=== PATIENT | female | born 1970 | race Caucasian/White ===

== ENCOUNTER 2016-10-02 14:49 | Emergency (ER) | payer SELFPAY ==
[~2016-10-02] VITALS: Ht 182.9 cm; Wt 136.4 kg
[~2016-10-02 14:49] MED LIST: BENADRYL25 M1 PO; NO HOME MEDICATIONS
[2016-10-02 14:50] VITALS: TEMP 99.2
[2016-10-02 15:14] LABS: BASO % 0.4 % (0.0-2.0); EOS # 0.1 (0.0-0.7); EOS % 0.8 % (0-4.0); GRAN # 5.5 (1.4-6.5); GRAN % 70.7 % (42.2-75.2); LYMPH # 1.6 (1.2-3.4); LYMPH % 20.7 % (20.0-51.0); MEAN CELL VOLUME 72 fl (80.0-100.0); MEAN CORPUSCULAR HGB CONC 31 g/dl (33.0-37.0); MEAN PLATELET VOLUME 11.7 fl (7.4-10.4); MONO # 0.5 (0.1-0.6); MONO % 6.9 % (1.7-9.3); PLATELET COUNT 226 K/mm3 (130-400); RED BLOOD COUNT 5.02 M/mm3 (4.10-5.30); REDCELL DISTRIBUTION WIDTH-CV 17.1 % (11.5-14.5); WHITE BLOOD COUNT 7.8 K/mm3 (4.8-10.8)
[2016-10-02 15:22] LABS: HEMATOCRIT 35.9 % (37.0-47.0); HEMOGLOBIN 11.1 g/dl (12.5-16.0); MEAN CORPUSCULAR HEMOGLOBIN 22 pg (27.0-31.0)
[2016-10-02 15:24] LABS: ADJUSTED CALCIUM 8.7 mg/dL (8.4-10.2); ALBUMIN 4.2 gm/dL (3.5-5.0); BILIRUBIN,TOTAL 0.7 mg/dL (0.0-1.0); CALCIUM 8.9 mg/dL (8.4-10.2); CREATININE, serum 0.98 mg/dL (0.52-1.25); POTASSIUM 4.2 mmol/L (3.4-5.0); TOTAL PROTEIN 7.2 gm/dL (6.4-8.2)
[2016-10-02 16:33] VITALS: BP 122/74; PULSE 83
== END 2016-10-02 16:38 | disposition home or self-care (01) ==
LOC: COL.ER 14:49
PROVIDERS: Family Medicine
DX: E86.0 Dehydration (principal); T67.8XXA Other effects of heat and light, initial encounter; X30.XXXA Exposure to excessive natural heat, initial encounter
CPT/HCPCS: J7030

== ENCOUNTER 2018-08-11 03:16 | Emergency (ER) | payer SELFPAY ==
[~2018-08-11] VITALS: Ht 182.9 cm; Wt 150.0 kg
[2018-08-11 03:20] VITALS: TEMP 98.4
[2018-08-11] MEDS ORDERED: ANTIVERT 25MG25 MG PO (03:40)
[2018-08-11 03:52] LABS: BASO % 0.6 % (0.0-2.0); EOS # 0.1 (0.0-0.7); EOS % 1.9 % (0-4.0); GRAN # 4.2 (1.4-6.5); GRAN % 65.6 % (42.2-75.2); HEMATOCRIT 31.3 % (37.0-47.0); HEMOGLOBIN 8.8 g/dl (12.5-16.0); LYMPH # 1.5 (1.2-3.4); LYMPH % 23.7 % (20.0-51.0); MEAN CELL VOLUME 65 fl (80.0-100.0); MEAN CORPUSCULAR HEMOGLOBIN 18 pg (27.0-31.0); MEAN CORPUSCULAR HGB CONC 28 g/dl (33.0-37.0); MEAN PLATELET VOLUME 10.6 fl (7.4-10.4); MONO # 0.5 (0.1-0.6); MONO % 7.9 % (1.7-9.3); PLATELET COUNT 272 K/mm3 (130-400); RED BLOOD COUNT 4.79 M/mm3 (4.10-5.30); REDCELL DISTRIBUTION WIDTH-CV 18.6 % (11.5-14.5)
[2018-08-11 03:58] LABS: ALANINE AMINOTRANSFERASE 17 U/L (9-52); ALKALINE PHOSPHATASE 85 U/L (50-136); ANION GAP 11 mmol/L (7-16); AST,SGOT 22 U/L (15-37); BILIRUBIN,TOTAL 0.3 mg/dL (0.0-1.0); BLOOD UREA NITROGEN 14 mg/dL (7-17); CALCIUM 8.9 mg/dL (8.4-10.2); CARBON DIOXIDE 23 mmol/L (22-30); CHLORIDE 105 mmol/L (98-107); CREATININE, serum 0.71 (0.52-1.25); GLUCOSE 180 mg/dL (74-106); POTASSIUM 4.1 mmol/L (3.4-5.0); SODIUM 139 mmol/L (137-145); TOTAL PROTEIN 7.3 gm/dL (6.4-8.2)
[2018-08-11 04:09] LABS: TROPONIN-I < 0.012 ng/mL (0.000-0.035)
[2018-08-11] MEDS ORDERED: PRINZIDE 25 MG-1 TAB PO (04:41)
[2018-08-11] MEDS ORDERED: PHENERGAN 25 TA25 MG PO (05:26)
[2018-08-11] MEDS ORDERED: GLUCOPHAGE500 MG/TAB PO (05:30)
[2018-08-11 06:30] VITALS: BP 176/80; PULSE 84
== END 2018-08-11 06:35 | disposition home or self-care (01) ==
LOC: COL.ER 03:16
PROVIDERS: Emergency Medicine
DX: R42 Dizziness and giddiness (principal); Z98.51 Tubal ligation status
CPT/HCPCS: J2060; J2405; J2550; J7030